=== PATIENT | female | born 1980 | race Caucasian/White ===

== ENCOUNTER 2017-07-31 19:22 | Outpatient (CLI) | payer OTHER ==
[~2017-07-31] VITALS: Ht 172.7 cm; Wt 79.4 kg
[2017-07-31 20:05] LABS: MICROSCOPIC NOT IND
[2017-07-31 20:09] VITALS: BP 122/71
[2017-07-31 20:26] LABS: AMPHETAMINE SCREEN, URINE Negative (Negative); BARBITURATE SCREEN, URINE Negative (Negative); BENZODIAZEPINE SCREEN, URINE Negative (Negative); CANNABINOID SCREEN, URINE Negative (Negative); COCAINE SCREEN, URINE Negative (Negative); METHADONE SCREEN, URINE Negative (Negative); OPIATE SCREEN, URINE Negative (Negative)
== END 2017-07-31 20:51 | disposition home or self-care (01) ==
LOC: LDOP 19:22
PROVIDERS: ATTEND Obstetrics & Gynecology
DX: O09.512 Supervision of elderly primigravida, second trimester (principal); Z3A.20 20 weeks gestation of pregnancy
CPT/HCPCS: 59025; 80307; 81003; 87086; 99201; G0463; G0479

== ENCOUNTER 2017-12-14 09:45 | Inpatient (IN) | payer OTHER ==
[~2017-12-14] VITALS: Ht 172.7 cm; Wt 91.0 kg
[2017-12-14] MEDS ORDERED: OXYTOCIN 30U/ 0.9% NaCL 500ML 500 ML IV ONE (21:28)
[2017-12-14] MEDS ORDERED: D5%-LACTATED RINGERS 1,000 ML IV SCH (21:28)
[2017-12-14] MEDS ORDERED: LACTATED RINGERS 1,000 ML IV SCH (21:28)
[2017-12-14] MEDS ORDERED: ONDANSETRON 2MG/ML, 2ML IVPush PRN (21:30)
[2017-12-14] MEDS ORDERED: FENTANYL PF 100 MCG/2ML IV PRN (21:30)
[2017-12-14] MEDS ORDERED: CALCIUM CARBONATE 500 MG TAB.CHEW PO PRN (21:30)
[2017-12-14] MEDS ORDERED: TERBUTALINE 1 MG/ML, 1ML IVPush PRN (21:30)
[2017-12-14] MEDS ORDERED: FENTANYL PF 100 MCG/2ML IVPush PRN (21:30)
[2017-12-14 22:13] LABS: MEAN CORPUSCULAR HEMOGLOBIN 29.2 pg (27.0-34.8); MEAN CORPUSCULAR HGB CONC 33.4 g/dL (32.4-35.8); MEAN CORPUSCULAR VOLUME 87.6 fL (80-100); RED BLOOD COUNT 4.89 x10^6/uL (3.82-5.3); RED CELL DISTRIBUTION WIDTH 14.3 % (9.6-15.2)
[2017-12-14 22:18] LABS: ALANINE AMINOTRANSFERASE 26 U/L (12-78); ALBUMIN 3.3 g/dL (3.4-5.0); ANION GAP 13 mmol/L (5-15); CALCIUM 9.6 mg/dL (8.5-10.1); CHLORIDE 102 mmol/L (98-107); CREATININE 0.93 mg/dL (0.55-1.02)
[2017-12-14 22:20] LABS: ALKALINE PHOSPHATASE 179 U/L (45-117); BILIRUBIN,TOTAL 0.3 mg/dL (0.2-1.0); TOTAL PROTEIN 7.9 g/dL (6.4-8.2)
[2017-12-14 22:27] LABS: MD SCAN; MEAN PLATELET VOLUME 12.8 fL (7.4-10.4); PLATELET COUNT 202 x10^3/uL (130-400)
[2017-12-14 22:28] LABS: BASOPHILS % (AUTO) 0 % (0-1); EOSINOPHILS # (AUTO) 0.01 x10^3/uL (0-0.4); EOSINOPHILS % (AUTO) 0 % (1-7); LYMPHOCYTES # (AUTO) 0.88 x10^3/uL (1-3.4); LYMPHOCYTES % (AUTO) 5 % (22-44); MONOCYTES # (AUTO) 0.52 x10^3/uL (0.2-0.8); MONOCYTES % (AUTO) 3 % (2-9); NEUTROPHILS # (AUTO) 16.92 x10^3/uL (1.8-6.8); NEUTROPHILS % (AUTO) 92 % (42-75)
[2017-12-15] MEDS: OXYTOCIN 30U/ 0.9% NaCL 500ML 500 ML IV SCH ×3 (00:34→20:34)
[2017-12-15] MEDS ORDERED: IBUPROFEN 600 MG TABLET ONE (00:37)
[2017-12-15] MEDS ORDERED: ACETAMINOPHEN 325 MG TABLET PO PRN ×2 (01:00)
[2017-12-15] MEDS ORDERED: ONDANSETRON 2MG/ML, 2ML IV PRN (01:00)
[2017-12-15] MEDS ORDERED: GLYCERIN ADULT SUPP PR PRN (01:00)
[2017-12-15] MEDS ORDERED: BISACODYL 10 MG SUPP PR PRN (01:00)
[2017-12-15] MEDS: IBUPROFEN 600 MG TABLET PO PRN ×4 (01:00→19:37)
[2017-12-15] MEDS ORDERED: OXYcodone/APAP 5/325MG TABLET PO PRN (01:00)
[2017-12-15] MEDS ORDERED: CARBOPROST TROMETHAMINE 250 MCG/ML, 1ML IM PRN (01:00)
[2017-12-15] MEDS ORDERED: MISOPROSTOL 200 MCG TABLET PR PRN (01:00)
[2017-12-15 03:05] VITALS: BP 105/68
[2017-12-15 07:54] VITALS: BP 119/65
[2017-12-15] MEDS: DOCUSATE 100 MG CAPSULE PO PRN ×2 (08:21→19:37)
[2017-12-15] MEDS: PRENATAL VIT/IRON/FA 1 EACH TABLET PO SCH (08:21)
[2017-12-15] MEDS: OXYcodone/APAP 5/325MG TABLET PO PRN ×4 (08:23→19:37)
[2017-12-15 08:35] LABS: MEAN CORPUSCULAR HEMOGLOBIN 29.4 pg (27.0-34.8); MEAN CORPUSCULAR VOLUME 86.6 fL (80-100); PLATELET COUNT 166 x10^3/uL (130-400); RED BLOOD COUNT 4.42 x10^6/uL (3.82-5.3); RED CELL DISTRIBUTION WIDTH 13.7 % (9.6-15.2)
[2017-12-15 08:36] LABS: MD YES
[2017-12-15 08:37] LABS: <PLATELET ESTIMATE> ADEQUATE; <RBC MORPHOLOGY> NORMAL; BAND#(MANUAL) 1.32 x10^3/uL; BANDS%(MANUAL) 6 % (0-7); LARGE PLATELETS 1+; LYMPH#(MANUAL) 0.88 x10^3/uL (1-3.4); LYMPHS% (MANUAL) 4 % (22-44); MONOS#(MANUAL) 1.54 x10^3/uL (0.3-2.7); MONOS% (MANUAL) 7 % (2-9); SEG#(MANUAL) 18.26 x10^3/uL (1.8-6.8); SEGS% (MANUAL) 83 % (42-75)
[2017-12-15 13:21] VITALS: BP 111/72
[2017-12-15 16:41] VITALS: BP 115/70
[2017-12-15 19:10] VITALS: BP 108/64
[2017-12-16] MEDS: OXYcodone/APAP 5/325MG TABLET PO PRN ×5 (00:50→22:04)
[2017-12-16] MEDS: IBUPROFEN 600 MG TABLET PO PRN ×3 (03:11→19:52)
[2017-12-16] MEDS: OXYTOCIN 30U/ 0.9% NaCL 500ML 500 ML IV SCH ×2 (06:34→16:34)
[2017-12-16 07:21] VITALS: BP 110/65
[2017-12-16] MEDS: PRENATAL VIT/IRON/FA 1 EACH TABLET PO SCH (07:50)
[2017-12-16] MEDS: DOCUSATE 100 MG CAPSULE PO PRN ×2 (07:50→19:52)
[2017-12-16 22:10] VITALS: BP 114/64
[2017-12-17] MEDS: OXYcodone/APAP 5/325MG TABLET PO PRN ×4 (01:58→16:08)
[2017-12-17] MEDS: IBUPROFEN 600 MG TABLET PO PRN ×2 (01:58→09:30)
[2017-12-17] MEDS: OXYTOCIN 30U/ 0.9% NaCL 500ML 500 ML IV SCH (02:34)
[2017-12-17 08:50] VITALS: BP 121/62
[2017-12-17] MEDS: PRENATAL VIT/IRON/FA 1 EACH TABLET PO SCH (09:00)
[2017-12-17] MEDS ORDERED: IBUP-1222 PO (15:06)
[2017-12-17] MEDS ORDERED: OXYC-302 PO (15:06)
== END 2017-12-17 19:34 | disposition home or self-care (01) | DRG 774 ==
LOC: LDIP 21:09 → 2NW 12-15 02:35
PROVIDERS: ADMIT Obstetrics & Gynecology; ATTEND Obstetrics & Gynecology
PROC: 0KQM0ZZ Repair Perineum Muscle, Open Approach (ICD-10-PCS; principal; 2017-12-15)
PROC: 10E0XZZ Delivery of Products of Conception, External Approach (ICD-10-PCS; 2017-12-15)
DX: O70.1 Second degree perineal laceration during delivery (principal); Z37.0 Single live birth; O75.4 Other complications of obstetric surgery and procedures; I50.9 Heart failure, unspecified; Z3A.39 39 weeks gestation of pregnancy
CPT/HCPCS: 36415; 80053; 84550; 85025; 86850; 86900; J7120

== ENCOUNTER 2019-02-24 13:16 | Outpatient (CLI) | payer OTHER ==
[~2019-02-24 13:16] MED LIST: IBUP-1222 PO; OXYC-302 PO
[2019-03-03] MEDS ORDERED: APIX5TAB PO (07:50)
[2019-03-03] MEDS ORDERED: ASCO500C2 PO (10:28)
[2019-03-03] MEDS ORDERED: CALC-112 PO (10:30)
[2019-03-03] MEDS ORDERED: MAGN100T6 PO (10:31)
[2019-03-03] MEDS ORDERED: CHOL200040 PO (10:32)
[2019-03-03] MEDS ORDERED: FLUT16SP24 NAS (10:33)
[2019-03-03] MEDS ORDERED: AZEL137S4 NAS (10:34)
[2019-03-03] MEDS ORDERED: CLOT15CR5 EXT (10:36)
[2019-03-11] MEDS ORDERED: CALC200T24 PO (10:11)
[2019-03-11] MEDS ORDERED: DOCU-131 PO (10:11)
[2019-03-11] MEDS ORDERED: GABA-827 PO (10:11)
[2019-03-11] MEDS ORDERED: GABA300C10 PO (10:11)
== END 2019-02-24 23:59 | disposition home or self-care (01) ==
LOC: CFH 13:16
PROVIDERS: ATTEND Family Medicine
DX: N64.4 Mastodynia (principal); Z98.890 Other specified postprocedural states
CPT/HCPCS: 77066; G0279

== ENCOUNTER 2019-03-03 07:21 | Inpatient (IN) | payer OTHER ==
[~2019-03-03] VITALS: Ht 172.7 cm; Wt 80.0 kg
[2019-03-11 07:01] VITALS: BP 118/82
== END 2019-03-11 11:52 | DRG 96 ==
LOC: ED 10:15 → EDIP 10:38 → SUATTDRO 10:52 → 5SO 12:40
PROVIDERS: ADMIT Internal Medicine; ATTEND Internal Medicine
PROC: 009U3ZX Drainage of Spinal Canal, Percutaneous Approach, Diagnostic (ICD-10-PCS; principal; 2019-03-04)
PROC: B01B1ZZ Fluoroscopy of Spinal Cord using Low Osmolar Contrast (ICD-10-PCS; 2019-03-04)
PROC: 02HV33Z Insertion of Infusion Device into Superior Vena Cava, Percutaneous Approach (ICD-10-PCS; 2019-03-04)
PROC: B5181ZA Fluoroscopy of Superior Vena Cava using Low Osmolar Contrast, Guidance (ICD-10-PCS; 2019-03-04)
PROC: B548ZZA Ultrasonography of Superior Vena Cava, Guidance (ICD-10-PCS; 2019-03-04)
PROC: 5A1D70Z Performance of Urinary Filtration, Intermittent, Less than 6 Hours Per Day (ICD-10-PCS; 2019-03-04)
PROC: 5A1D70Z Performance of Urinary Filtration, Intermittent, Less than 6 Hours Per Day (ICD-10-PCS; 2019-03-05)
PROC: 30233K1 Transfusion of Nonautologous Frozen Plasma into Peripheral Vein, Percutaneous Approach (ICD-10-PCS; 2019-03-05)
PROC: 5A1D70Z Performance of Urinary Filtration, Intermittent, Less than 6 Hours Per Day (ICD-10-PCS; 2019-03-06)
PROC: 5A1D70Z Performance of Urinary Filtration, Intermittent, Less than 6 Hours Per Day (ICD-10-PCS; 2019-03-07)
PROC: 5A1D70Z Performance of Urinary Filtration, Intermittent, Less than 6 Hours Per Day (ICD-10-PCS; 2019-03-08)
DX: G61.0 Guillain-Barre syndrome (principal); I48.91 Unspecified atrial fibrillation; I50.9 Heart failure, unspecified; B97.89 Other viral agents as the cause of diseases classified elsewhere; W57.XXXA Bitten or stung by nonvenomous insect and other nonvenomous arthropods, initial encounter; M51.37 Other intervertebral disc degeneration, lumbosacral region; Z79.01 Long term (current) use of anticoagulants; Z80.0 Family history of malignant neoplasm of digestive organs; Z80.3 Family history of malignant neoplasm of breast
CPT/HCPCS: 36415; 72110; 77001; 77003; 84145; 87046; 87427; 99285; J3490; 36514; 36556; 72156; 72157; 76700; 76937; 80048; 80053; 81003; 82784; 82945; 83516; 83605; 83735; 84100; 84157; 84443; 84703; 85014; 85018; 85025; 85384; 85610; 85651; 85730; 86140; 86308; 86788; 86789; 86790; 86850; 86900; 87040; 87207; 87252; 87498; 87633; 87798; 89051; 93005; 94150; 99156; 99157; A9585; G0378; J1885; J2250; J2405; J3010; P9041; P9045; C1751; J0610; J1642; J2310; J7030; P9017

== ENCOUNTER 2019-06-27 07:36 | Emergency (ER) | payer OTHER ==
[~2019-06-27] VITALS: Ht 170.2 cm; Wt 79.0 kg
[~2019-06-27 07:36] MED LIST changes: +APIX5TAB PO; +ASCO500C2 PO; +AZEL137S4 NAS; +CALC-112 PO; +CALC200T24 PO; +CHOL200040 PO; +CLOT15CR5 EXT; +DOCU-131 PO; +FLUT16SP24 NAS; +GABA-827 PO; +GABA300C10 PO; +MAGN100T6 PO
--- NOTE | 2019-06-27 08:05 | NUR ---
WARES SORTER: PT TO ROOM FROM [facility], AMBULATORY STEADY GAIT.
[2019-06-27] MEDS ORDERED: MECLIZINE CHEWABLE 25 MG TAB ONE (08:41)
[2019-06-27] MEDS ORDERED: MECLIZINE CHEWABLE 25 MG TAB PO ONE (09:00)
[2019-06-27 09:31] LABS: ALBUMIN 4.2 g/dL (3.4-5.0); ANION GAP 10 mmol/L (5-15); CALCIUM 9.4 mg/dL (8.5-10.1); CHLORIDE 108 mmol/L (98-107)
[2019-06-27 09:37] LABS: ALANINE AMINOTRANSFERASE 26 U/L (12-78); ALKALINE PHOSPHATASE 68 U/L (45-117); BILIRUBIN,TOTAL 0.8 mg/dL (0.2-1.0); CREATININE 0.82 mg/dL (0.55-1.02); TOTAL PROTEIN 8.3 g/dL (6.4-8.2)
[2019-06-27 09:44] LABS: BASOPHILS # (AUTO) 0.04 x10^3/uL (0-0.1); BASOPHILS % (AUTO) 0 % (0-1); EOSINOPHILS % (AUTO) 1 % (1-7); LYMPHOCYTES # (AUTO) 2.54 x10^3/uL (1-3.4); LYMPHOCYTES % (AUTO) 25 % (22-44); MD SCAN; MEAN CORPUSCULAR HGB CONC 33.4 g/dL (32.4-35.8); MEAN CORPUSCULAR VOLUME 83.9 fL (80-100); MEAN PLATELET VOLUME 12.1 fL (7.4-10.4); MONOCYTES # (AUTO) 0.54 x10^3/uL (0.2-0.8); MONOCYTES % (AUTO) 5 % (2-9); NEUTROPHILS # (AUTO) 6.78 x10^3/uL (1.8-6.8); NEUTROPHILS % (AUTO) 68 % (42-75); PLATELET COUNT 209 x10^3/uL (130-400); RED BLOOD COUNT 4.81 x10^6/uL (3.82-5.3); RED CELL DISTRIBUTION WIDTH 14.4 % (9.6-15.2)
--- NOTE | 2019-06-27 09:55 | NUR ---
REPORT FROM JOHN STOLL
[2019-06-27 10:15] VITALS: BP 114/89
--- NOTE | 2019-06-27 10:16 | NUR ---
Provided report to DODIE Basurto. All questions answered. DODIE Basurto to assume care of pt at this time.
--- NOTE | 2019-06-27 10:36 | NUR ---
AMBULATORY WITHOUT INCREASE IN DIZZINESS. TOLERATING PO FLUIDS REVIEWED POC (RX, IMPORTANCE OF F/U WITH PC/SPINNING MACHINE OPERATOR/NEUROLOGIST) VSS ON AUTOMOTIVE QUALITY MANAGER
== END 2019-06-27 10:39 | disposition home or self-care (01) ==
LOC: ED 10:26
DX: R42 Dizziness and giddiness (principal); I48.91 Unspecified atrial fibrillation
CPT/HCPCS: 36415; 80053; 84703; 85025; 93005; 99284

== ENCOUNTER → 2020-12-24 | Outpatient (CLI) | payer OTHER ==
[~2020-12-24] MED LIST changes: +CLOT15CR26 EXT; -CLOT15CR5 EXT; -OXYC-302 PO; +OXYC1TAB14 PO
== END | disposition home or self-care (01) ==
LOC: CFH 08:19
PROVIDERS: ATTEND Family Medicine
DX: Z12.31 Encounter for screening mammogram for malignant neoplasm of breast (principal)
CPT/HCPCS: 77063; 77067